=== PATIENT | male | born 1990 | race Caucasian/White ===

== ENCOUNTER 2022-06-17 15:14 | Emergency (ER) | payer MEDICAID, OTHER ==
[~2022-06-17] VITALS: Ht 165.1 cm; Wt 79.2 kg
[2022-06-17 15:29] VITALS: BP 131/85
[2022-06-17] MEDS ORDERED: methadone (15:29)
[2022-06-17] MEDS ORDERED: LORAZEPAM 1MG TABLET PO ONE (16:15)
[2022-06-17] MEDS ORDERED: IBUPROFEN 600MG TABLET PO ONE (18:15)
[2022-06-17] MEDS ORDERED: LORAZEPAM 0.5MG TABLET PO ONE (20:30)
== END 2022-06-17 20:30 | disposition home or self-care (01) ==
LOC: ER 15:31
DX: T43.651A Poisoning by methamphetamines accidental (unintentional), initial encounter (principal); R00.2 Palpitations; F15.129 Other stimulant abuse with intoxication, unspecified; R03.0 Elevated blood-pressure reading, without diagnosis of hypertension; Y92.89 Other specified places as the place of occurrence of the external cause
CPT/HCPCS: 71045; 93005; 99283